=== PATIENT | female | born 1990 | race Caucasian/White ===

== ENCOUNTER 2021-05-23 15:26 | Outpatient (CLI) | payer OTHER ==
[~2021-05-23] VITALS: Ht 177.8 cm; Wt 79.5 kg
[2021-05-23 16:09] LABS: BASOPHILS % (AUTO) 0 % (0-1); EOSINOPHILS % (AUTO) 1 % (1-7); LYMPHOCYTES % (AUTO) 21 % (22-44); MEAN CORPUSCULAR HEMOGLOBIN 32.7 pg (27.0-34.8); MEAN CORPUSCULAR HGB CONC 35.1 g/dL (32.4-35.8); MEAN PLATELET VOLUME 7.9 fL (7.4-10.4); MONOCYTES % (AUTO) 11 % (2-9); NEUTROPHILS % (AUTO) 67 % (42-75); PLATELET COUNT 224 x10^3/uL (130-400); RED BLOOD COUNT 3.75 x10^6/uL (3.82-5.3); RED CELL DISTRIBUTION WIDTH 12.6 % (9.6-15.2)
[2021-05-23 16:12] LABS: PROTEIN/CREATININE RATIO,URINE < 202 (0-200); TOTAL PROTEIN,URINE RANDOM < 5 mg/dL (0-12)
[2021-05-23 16:18] LABS: MICROSCOPIC INDICATED
[2021-05-23 16:22] LABS: ALBUMIN 2.8 g/dL (3.4-5.0); ANION GAP 5 mmol/L (5-15); CALCIUM 8.9 mg/dL (8.5-10.1); CHLORIDE 107 mmol/L (98-107)
[2021-05-23 16:26] LABS: ALANINE AMINOTRANSFERASE 20 U/L (12-78); ALKALINE PHOSPHATASE 105 U/L (45-117); BILIRUBIN,TOTAL 0.4 mg/dL (0.2-1.0); TOTAL PROTEIN 6.3 g/dL (6.4-8.2)
== END 2021-05-23 16:42 | disposition home or self-care (01) ==
LOC: LDOP 15:26
PROVIDERS: ATTEND Obstetrics & Gynecology
DX: O13.3 Gestational [pregnancy-induced] hypertension without significant proteinuria, third trimester (principal); Z3A.36 36 weeks gestation of pregnancy
CPT/HCPCS: 36415; 59025; 80053; 81001; 82570; 84156; 85025

== ENCOUNTER 2021-05-25 15:23 | Outpatient (CLI) | payer OTHER ==
[~2021-05-25] VITALS: Ht 177.8 cm; Wt 79.5 kg
[2021-05-25 16:07] VITALS: BP 120/75
[2021-05-25 17:29] LABS: MICROSCOPIC NOT IND
[2021-05-25] MEDS ORDERED: PREN1TAB10 PO (17:59)
== END 2021-05-25 18:20 | disposition home or self-care (01) ==
LOC: LDOP 15:23
PROVIDERS: ATTEND Obstetrics & Gynecology
DX: O26.893 Other specified pregnancy related conditions, third trimester (principal); R10.9 Unspecified abdominal pain; Z3A.36 36 weeks gestation of pregnancy
CPT/HCPCS: 59025; 81003

== ENCOUNTER 2021-06-06 12:45 | Outpatient (CLI) | payer OTHER ==
[~2021-06-06] VITALS: Ht 177.8 cm; Wt 80.0 kg
[~2021-06-06 12:45] MED LIST: PREN1TAB10 PO
[2021-06-06 13:09] LABS: BASOPHILS % (AUTO) 0 % (0-1); EOSINOPHILS % (AUTO) 1 % (1-7); LYMPHOCYTES % (AUTO) 21 % (22-44); MEAN CORPUSCULAR HEMOGLOBIN 32.1 pg (27.0-34.8); MEAN CORPUSCULAR HGB CONC 34.4 g/dL (32.4-35.8); MEAN PLATELET VOLUME 7.8 fL (7.4-10.4); MONOCYTES % (AUTO) 10 % (2-9); NEUTROPHILS % (AUTO) 69 % (42-75); PLATELET COUNT 215 x10^3/uL (130-400); RED BLOOD COUNT 3.83 x10^6/uL (3.82-5.3); RED CELL DISTRIBUTION WIDTH 12.3 % (9.6-15.2)
[2021-06-06 13:18] LABS: MICROSCOPIC INDICATED
[2021-06-06 13:21] LABS: TOTAL PROTEIN,URINE RANDOM < 5 mg/dL (0-12)
[2021-06-06 13:22] LABS: ALBUMIN 2.9 g/dL (3.4-5.0); ANION GAP 7 mmol/L (5-15); CALCIUM 8.9 mg/dL (8.5-10.1); CHLORIDE 106 mmol/L (98-107)
[2021-06-06 13:37] LABS: ALANINE AMINOTRANSFERASE 18 U/L (12-78); ALKALINE PHOSPHATASE 122 U/L (45-117); BILIRUBIN,TOTAL 0.3 mg/dL (0.2-1.0); CREATININE 0.52 mg/dL (0.55-1.02); TOTAL PROTEIN 6.5 g/dL (6.4-8.2)
== END 2021-06-06 14:30 | disposition home or self-care (01) ==
LOC: LDOP 12:45
PROVIDERS: ATTEND Obstetrics & Gynecology
DX: O16.3 Unspecified maternal hypertension, third trimester (principal); Z3A.38 38 weeks gestation of pregnancy
CPT/HCPCS: 36415; 59025; 80053; 81001; 82570; 84156; 84550; 85025

== ENCOUNTER 2021-06-08 00:36 | Inpatient (IN) | payer OTHER ==
[2021-06-08] MEDS ORDERED: FENTANYL PF 100 MCG/2ML IVPush PRN (01:00)
[2021-06-08] MEDS ORDERED: CALCIUM CARBONATE 500 MG TAB.CHEW PO PRN (01:00)
[2021-06-08] MEDS ORDERED: D5%-LACTATED RINGERS 1,000 ML IV SCH (01:00)
[2021-06-08] MEDS ORDERED: LACTATED RINGERS 1,000 ML IV SCH (01:00)
[2021-06-08] MEDS ORDERED: TERBUTALINE 1 MG/ML, 1ML IVPush PRN (01:00)
[2021-06-08] MEDS ORDERED: FENTANYL PF 100 MCG/2ML IV PRN (01:00)
[2021-06-08] MEDS ORDERED: TERBUTALINE 1 MG/ML, 1ML SQ PRN (01:00)
[2021-06-08] MEDS ORDERED: SODIUM CITRATE/CITRIC ACID 30 ML UDC PO PRN (01:00)
[2021-06-08] MEDS ORDERED: METOCLOPRAMIDE 5 MG/ML, 2ML IVPush PRN (01:00)
[2021-06-08] MEDS ORDERED: ONDANSETRON 2MG/ML, 2ML IVPush PRN (01:00)
[2021-06-08] MEDS ORDERED: OXYTOCIN 30U/ 0.9% NaCL 500ML 500 ML IV PRN (01:00)
[2021-06-08] MEDS ORDERED: OXYTOCIN 30U/ 0.9% NaCL 500ML 500 ML IV ONE (01:00)
[2021-06-08 01:17] LABS: BASOPHILS % (AUTO) 0 % (0-1); EOSINOPHILS % (AUTO) 0 % (1-7); LYMPHOCYTES % (AUTO) 15 % (22-44); MEAN CORPUSCULAR HEMOGLOBIN 32.5 pg (27.0-34.8); MEAN CORPUSCULAR HGB CONC 35.2 g/dL (32.4-35.8); MEAN PLATELET VOLUME 7.9 fL (7.4-10.4); MONOCYTES % (AUTO) 9 % (2-9); NEUTROPHILS % (AUTO) 76 % (42-75); PLATELET COUNT 222 x10^3/uL (130-400); RED BLOOD COUNT 3.95 x10^6/uL (3.82-5.3); RED CELL DISTRIBUTION WIDTH 12.6 % (9.6-15.2)
[2021-06-08 01:20] LABS: ALANINE AMINOTRANSFERASE 20 U/L (12-78); ALBUMIN 3.1 g/dL (3.4-5.0); ANION GAP 11 mmol/L (5-15); BILIRUBIN, DIRECT 0.1 mg/dL (0.1-0.2); CALCIUM 8.7 mg/dL (8.5-10.1); CHLORIDE 106 mmol/L (98-107); CREATININE 0.57 mg/dL (0.55-1.02)
[2021-06-08 01:22] LABS: ALKALINE PHOSPHATASE 125 U/L (45-117); BILIRUBIN,TOTAL 0.5 mg/dL (0.2-1.0); TOTAL PROTEIN 6.7 g/dL (6.4-8.2)
[2021-06-08] MEDS ORDERED: NEWBORN KIT ONE (04:50)
[2021-06-08] MEDS ORDERED: METOCLOPRAMIDE 5 MG/ML, 2ML IV PRN (06:00)
[2021-06-08] MEDS ORDERED: TRANEXAMIC ACID 1,000 MG in SODIUM CHLORIDE 0.9% 100 ML IVPB ONE (06:00)
[2021-06-08] MEDS ORDERED: BISACODYL 10 MG SUPP PR PRN (06:00)
[2021-06-08] MEDS ORDERED: ONDANSETRON 2MG/ML, 2ML IV PRN (06:00)
[2021-06-08] MEDS ORDERED: OXYcodone/APAP 5/325MG TABLET PO PRN (06:00)
[2021-06-08] MEDS ORDERED: GLYCERIN ADULT SUPP PR PRN (06:00)
[2021-06-08] MEDS ORDERED: SIMETHICONE 80 MG CHEW TAB PO PRN (06:00)
[2021-06-08] MEDS ORDERED: ACETAMINOPHEN 325 MG TABLET PO PRN (06:00)
[2021-06-08] MEDS ORDERED: OXYcodone IR 5MG TABLET PO PRN (06:00)
[2021-06-08] MEDS ORDERED: MISOPROSTOL 200 MCG TABLET PO PRN (06:00)
[2021-06-08] MEDS ORDERED: CARBOPROST TROMETHAMINE 250 MCG/ML, 1ML IM PRN (06:00)
[2021-06-08] MEDS ORDERED: OXYTOCIN 30U/ 0.9% NaCL 500ML 500 ML IV SCH (06:00)
[2021-06-08] MEDS: IBUPROFEN 600 MG TABLET PO PRN ×3 (07:11→20:40)
[2021-06-08 07:40] VITALS: BP 136/75
[2021-06-08 12:05] VITALS: BP 130/83
[2021-06-08] MEDS: PRENATAL VIT/IRON/FA 1 EACH TABLET PO SCH (12:45)
[2021-06-08 16:30] VITALS: BP 155/84
[2021-06-08 19:15] VITALS: BP 130/81
[2021-06-08] MEDS: DOCUSATE 100 MG CAPSULE PO PRN (20:40)
[2021-06-08 22:17] LABS: BASOPHILS % (AUTO) 0 % (0-1); EOSINOPHILS % (AUTO) 0 % (1-7); LYMPHOCYTES % (AUTO) 17 % (22-44); MEAN CORPUSCULAR HEMOGLOBIN 32.3 pg (27.0-34.8); MONOCYTES % (AUTO) 10 % (2-9); NEUTROPHILS % (AUTO) 72 % (42-75); PLATELET COUNT 201 x10^3/uL (130-400); RED BLOOD COUNT 3.18 x10^6/uL (3.82-5.3); RED CELL DISTRIBUTION WIDTH 12.7 % (9.6-15.2)
[2021-06-09 00:30] VITALS: BP 148/93
[2021-06-09] MEDS: IBUPROFEN 600 MG TABLET PO PRN ×4 (03:03→18:34)
[2021-06-09 05:13] VITALS: BP 136/89
[2021-06-09] MEDS: PRENATAL VIT/IRON/FA 1 EACH TABLET PO SCH (09:00)
[2021-06-09 10:15] VITALS: BP 115/77
[2021-06-09] MEDS ORDERED: IBUP-1222 PO (11:20)
[2021-06-09 19:50] VITALS: BP 123/81
[2021-06-09] MEDS: DOCUSATE 100 MG CAPSULE PO PRN (21:43)
[2021-06-10] MEDS: IBUPROFEN 600 MG TABLET PO PRN ×2 (01:16→07:42)
[2021-06-10 07:30] VITALS: BP 132/88
[2021-06-10] MEDS: PRENATAL VIT/IRON/FA 1 EACH TABLET PO SCH (09:00)
== END 2021-06-10 12:00 | disposition home or self-care (01) | DRG 806 ==
LOC: LDIP 00:36 → 2NW 07:23
PROVIDERS: ADMIT Obstetrics & Gynecology; ATTEND Obstetrics & Gynecology
PROC: 10E0XZZ Delivery of Products of Conception, External Approach (ICD-10-PCS; principal; 2021-06-08)
PROC: 0KQM0ZZ Repair Perineum Muscle, Open Approach (ICD-10-PCS; 2021-06-08)
PROC: 3E0R3BZ Introduction of Anesthetic Agent into Spinal Canal, Percutaneous Approach (ICD-10-PCS; 2021-06-08)
PROC: 00HU33Z Insertion of Infusion Device into Spinal Canal, Percutaneous Approach (ICD-10-PCS; 2021-06-08)
DX: O13.4 Gestational [pregnancy-induced] hypertension without significant proteinuria, complicating childbirth (principal); D62 Acute posthemorrhagic anemia; Z37.0 Single live birth; O70.1 Second degree perineal laceration during delivery; Z80.3 Family history of malignant neoplasm of breast; Z3A.38 38 weeks gestation of pregnancy; Z82.49 Family history of ischemic heart disease and other diseases of the circulatory system; Z83.3 Family history of diabetes mellitus; Z80.8 Family history of malignant neoplasm of other organs or systems; O90.81 Anemia of the puerperium; Z20.822 Contact with and (suspected) exposure to COVID-19
CPT/HCPCS: 36415; 80053; 82248; 84550; 85025; 86592; 86850; 86900; 87635; G0378